=== PATIENT | female | born 1950 | race Caucasian/White ===

== ENCOUNTER 2018-11-06 20:04 | Emergency (ER) | payer OTHER ==
[~2018-11-06] VITALS: Ht 152.4 cm; Wt 81.7 kg
[~2018-11-06 20:04] MED LIST: ACET500C5 PO; ASPI325T30 PO; GABA300C16 PO; GLIP5TAB13 PO; LATA2.5D2 LEFT EYE; MTF1000T PO; TRAM50TA2 PO
[2018-11-06 20:12] VITALS: Ht 152.4 cm; Wt 81.7 kg
[2018-11-06 21:18] VITALS: BP 159/100; PULSE 76; RESP 18
--- NOTE | 2018-11-06 22:10 | ERD ---
ER Documentation Chief Complaint Chief Complaint NEW MED TAKEN RECENTLY, C/O DIZZINESS, BLURRED VISION, BRUISING X'S 2 DAYS HPI 68-year-old woman with a history of psoriatic arthritis began using secukinumab injection q. weekly 3 weeks ago and states for psoriatic plaques have greatly improved although about 2 days ago she began to notice maroon colored purpuric lesions over her upper extremities and got worried. She denies actual bleeding from the skin or soft tissues, no trauma to the extremities recently, no fevers or chills, no chest pain or shortness of breath. Patient also complains of some of the known side effects of secukinumab including mild dizziness and headaches although she is not complaining of those here in the ER. ROS All systems reviewed and are negative except as per history of present illness. Medications Home Meds Active Scripts Tramadol HCl (Tramadol HCl) 50 Mg Tablet, 50 MG PO Q4 PRN for PAIN, #20 TAB Prov:MEHNAZ ALEMAN PATIENT [employer]MBUD[employer]ERSON 07/31/16 Acetaminophen* (Tylophen*) 500 Mg Capsule, 1 CAP PO Q6H PRN for PAIN AND OR E LEVATED TEMP, #20 CAP Prov:MEHNAZ ALEMAN PATIENT OMBUDSPERSON 07/31/16 Reported Medications Gabapentin* (Gabapentin*) Unknown Strength Capsule, PO TID, #90 CAP 07/31/16 Latanoprost (Latanoprost) Unknown Strength Drops, LEFT EYE QHS, #1 BOTTLE 07/31/16 Aspirin* (Aspirin*) Unknown Strength Tablet, PO DAILY, TAB 07/31/16 Glipizide* (Glipizide*) Unknown Strength Tablet, PO AC BREAKFAST DINNER, TAB 07/31/16 Metformin* (Glucophage*) Unknown Strength Tablet, PO DAILY, #20 TAB 07/31/16 Allergies Allergies: Coded Allergies: No Known Allergy (Unverified , 07/31/16) PMhx/Soc Psoriatic arthritis, hypertension, anxiety, diabetes mellitus History of Surgery: Yes (APPENDECTOMY ) Anesthesia Reaction: No Hx Neurological Disorder: Yes (Diabetic Neuropathy) Hx Respiratory Disorders: No Hx Cardiac Disorders: No Hx Psychiatric Problems: No Hx Miscellaneous Medical Probl: Yes (DM,[place] Glaucoma/Cataract) Hx Alcohol Use: No Hx Substance Use: No Hx Tobacco Use: No Smoking Status: Never smoker FmHx Family History: No diabetes Physical Exam Vitals Vital Signs Date Temp Pulse Resp B/P (MAP) Pulse Ox O2 O2 Flow FiO2 Time Delivery Rate 11/06/18 97.4 76 18 159/100 99 Room Air 21:18 (119) 11/06/18 98.3 83 22 196/86 99 20:12 (122) Physical Exam Const: No acute distress, afebrile Resp: Clear to auscultation bilaterally Cardio: Regular rate and rhythm, no murmurs Abd: Soft, non tender, non distended. Normal bowel sounds Skin: Mild flesh-colored pink psoriatic lesions mostly macules over the lower extremities bilaterally these are improved compared to scaly plaque-like lesions she had a few weeks ago. She has small purpura, purple colored vascular macules over the anterior surfaces of the upper extremities bilaterally although in total she has about 4 lesions that are small. There are nontender without active bleeding or surrounding skin induration or erythema Back: No midline or flank tenderness Ext: No cyanosis, or edema, calves bilaterally symmetrical, distal pulses equal bilateral Neur: Awake and alert x3, no focal deficits or facial asymmetry, pupils equal round reactive to light Psych: Normal Mood and Affect Result Diagram: 11/06/18220011/06/182200 Results 24 hrs Laboratory Tests Test 11/06/18 22:01 White Blood Count 5.5 10^3/ul Red Blood Count 3.93 10^6/ul Hemoglobin 11.2 g/dl Hematocrit 35.1 % Mean Corpuscular Volume 89.3 fl Mean Corpuscular Hemoglobin 28.5 pg Mean Corpuscular Hemoglobin Concent 31.9 g/dl Red Cell Distribution Width 14.0 % Platelet Count 217 10^3/UL Mean Platelet Volume 10.3 fl Immature Granulocytes % 0.200 % Neutrophils % 48.0 % Lymphocytes % 42.4 % Monocytes % 5.8 % Eosinophils % 3.1 % Basophils % 0.5 % Nucleated Red Blood Cells % 0.0 /100WBC Immature Granulocytes # 0.010 10^3/ul Neutrophils # 2.6 10^3/ul Lymphocytes # 2.3 10^3/ul Monocytes # 0.3 10^3/ul Eosinophils # 0.2 10^3/ul Basophils # 0.0 10^3/ul Nucleated Red Blood Cells # 0.0 10^3/ul Prothrombin Time 11.7 Sec Prothrombin Time Ratio 0.9 INR International Normalized Ratio 0.85 Activated Partial Thromboplast Time 26.1 Sec Sodium Level 139 mmol/L Potassium Level 4.1 mmol/L Chloride Level 103 mmol/L Carbon Dioxide Level 25 mmol/L Anion Gap 11 Blood Urea Nitrogen 20 mg/dl Creatinine 0.65 mg/dl Est Glomerular Filtrat Rate mL/min > 60 mL/min Glucose Level 142 mg/dl Calcium Level 9.5 mg/dl Procedures/MDM CBC and electrolytes were normal, coagulation profile was normal. Differential diagnoses considered, included but not limited to acute coronary syndrome, pulmonary embolism, aortic dissection, abdominal aortic aneurysm, sepsis, stroke, meningitis, encephalitis, pneumonia, appendicitis, cholec ystitis, bowel obstruction, pyelonephritis, nephrolithiasis, cystitis, as well as metabolic, hematologic, and electrolyte abnormalities. As well as abscess, cellulitis, fractures, and dislocations. Patient feels much better at this time, and vital signs are normal, symptoms have improved. I did give strict instructions to return to the ED if symptoms continue or worsen, patient will otherwise follow-up with primary care physician. Patient understood instructions and agreed to plan. Disclaimer: Inadvertent spelling and grammatical errors are likely due to EHR/dictation software use and do not reflect on the overall quality of patient care. Also, please note that the electronic time recorded on this note does not necessarily reflect the actual time of the patient encounter. Departure Diagnosis: Primary Impression: Medication side effect Additional Impression: Hypersensitivity reaction Encounter type: initial encounter Qualified Codes: T78.40XA - Allergy, unspecified, initial encounter Condition: JAMAR Pablo MD Nov 06, 2018 22:10
[2018-11-06] MEDS ORDERED: CLOB15GE TOP (23:15)
[2018-11-06] MEDS ORDERED: [UNRECOGNIZED DRUG - CODE] PO (23:15)
[2018-11-06] MEDS ORDERED: AVAS400I IV (23:15)
[2018-11-06] MEDS ORDERED: LISI10TA2 PO (23:15)
[2018-11-06] MEDS ORDERED: NAPR-688 PO (23:15)
[2018-11-06] MEDS ORDERED: [UNRECOGNIZED DRUG - CODE] TOP (23:15)
[2018-11-06] MEDS ORDERED: MELO15TA30 PO (23:15)
[2018-11-06] MEDS ORDERED: ASPI-817 PO (23:15)
[2018-11-06] MEDS ORDERED: GLYB2.5T2 PO (23:15)
[2018-11-06] MEDS ORDERED: TRAM50TA2 PO (23:15)
[2018-11-06] MEDS ORDERED: CALC60CR4 TOP (23:15)
[2018-11-06] MEDS ORDERED: NAFT45CR2 TOP (23:15)
[2018-11-06] MEDS ORDERED: METF100010 PO (23:15)
[2018-11-06] MEDS ORDERED: METO-335 PO (23:15)
[2018-11-06] MEDS ORDERED: SECU150P2 SQ (23:15)
[2018-11-06] MEDS ORDERED: [UNRECOGNIZED DRUG - CODE] PO (23:15)
[2018-11-06] MEDS ORDERED: BETA60LO5 TOP (23:15)
[2018-11-06] MEDS ORDERED: ERGO500013 PO (23:15)
== END 2018-11-06 23:14 | disposition home or self-care (01) ==
LOC: E/R 20:04
DX: L98.9 Disorder of the skin and subcutaneous tissue, unspecified (principal); T45.1X5A Adverse effect of antineoplastic and immunosuppressive drugs, initial encounter; I10 Essential (primary) hypertension; E11.9 Type 2 diabetes mellitus without complications; Z79.82 Long term (current) use of aspirin; Z79.84 Long term (current) use of oral hypoglycemic drugs
CPT/HCPCS: 36415; 80048; 85025; 85610; 85730; Z7502; 99283